=== PATIENT | female | born 1975 | race Caucasian/White ===

== ENCOUNTER 2025-06-07 21:23 | Emergency (ER) | payer SELFPAY ==
[~2025-06-07] VITALS: Ht 188 cm; Wt 91.0 kg
[2025-06-07 21:32] VITALS: O2SAT 100
[2025-06-07] MEDS ORDERED: KETOROLAC 30MG/ML VIAL IM ONE (21:45)
[2025-06-07] MEDS: KETOROLAC 15MG/ML VIAL IV ONE (22:08)
[2025-06-07] MEDS ORDERED: BACL-141 MT (22:54)
[2025-06-07] MEDS ORDERED: ACET-2708 MT (22:54)
[2025-06-07 23:20] VITALS: BP 160/111; PULSE 83; RESP 18; TEMP 36.7; O2SAT 96
== END 2025-06-07 23:34 | disposition home or self-care (01) ==
LOC: ER 21:23
DX: S70.02XA Contusion of left hip, initial encounter (principal); S70.12XA Contusion of left thigh, initial encounter; I10 Essential (primary) hypertension; W18.30XA Fall on same level, unspecified, initial encounter; Y93.89 Activity, other specified; Y92.89 Other specified places as the place of occurrence of the external cause; Y99.8 Other external cause status
CPT/HCPCS: 99285; 96374; 93971; 73502; 73552; J1885